=== PATIENT | male | born 1945 | race Caucasian/White ===

== ENCOUNTER 2021-10-30 07:13 | Outpatient (CLI) | payer MEDICARE, SELFPAY ==
--- NOTE | 2021-10-30 07:15 | CRLHL7_ITS ---
For Patients: As a result of the Cures Act, medical imaging exams and procedure reports are released immediately into your electronic medical record. You may view this report before your referring provider. If you have questions, please contact your health care provider. INDICATION: recent fall, persistent bruising lateral calf COMPARISON: None. TECHNIQUE: A compression venous ultrasound exam was performed of the left lower extremity using jorgensen-scale imaging, color Doppler and spectral Doppler analysis. FINDINGS: Sonographic imaging of the left lower extremity demonstrates normal compressibility and color Doppler venous blood flow within the common femoral vein, deep femoral vein, and the proximal greater saphenous vein. Within the thigh, the femoral vein is patent and compressible. At a lower level, the popliteal and posterior tibial veins also show normal compressibility and color Doppler venous blood flow. Limited imaging of the contralateral groin demonstrates a normal spectral waveform and color Doppler venous blood flow within the right common femoral vein. Within the left lateral calf subcutaneous tissues, there is a complex fluid collection measuring 8.7 x 0.9 x 4.6 cm containing numerous internal septations. IMPRESSION: No evidence of deep vein thrombosis within the left lower extremity. Left lateral calf subcutaneous hematoma measuring 8.7 x 0.9 x 4.6 cm. Dictated by Calvin Sharma MD @ 10/30/2021 8:21:38 AM (Electronically Signed)
== END 2021-10-30 07:14 | disposition home or self-care (01) ==
LOC: US 07:15
PROVIDERS: PCP Family Medicine; Visit Provider Physician Assistant Medical
DX: M79.605 Pain in left leg (principal)
CPT/HCPCS: 93971

== ENCOUNTER 2022-03-03 09:07 | Outpatient (CLI) | payer MEDICARE, SELFPAY ==
[2022-03-03 14:37] LABS: Chloride* 106 mmol/L (96-114); Potassium* 4.1 mmol/L (3.6-5.1)
[2022-03-03 14:39] LABS: Alanine Aminotransferase* 21 U/L (4-50); Alkaline Phosphatase* 94 U/L (40-150); Aspartate Amino Transferase* 35 U/L (12-35); Bilirubin Total* 0.8 mg/dL (0.1-1.5); Blood Urea Nitrogen* 24 mg/dL (7-30); Carbon Dioxide* 30 mmol/L (20-32); Cholesterol* 154 mg/dL (90-199); Creatinine* 0.8 mg/dL (0.5-1.5); Estimated Glomerular Filt Rate 92 ml/min; Glucose* 96 mg/dL (60-115); Total Protein* 6.7 g/dL (6.0-8.3)
[2022-03-03 14:40] LABS: HDL Cholesterol* 54 mg/dL (>=40); LDL Cholesterol Calculated 75 mg/dL (<100); Triglycerides* 126 mg/dL (40-149)
[2022-03-03 14:51] LABS: Sodium* 142 mmol/L (135-149)
[2022-03-04 21:07] LABS: Prostate Specific Antigen Free 0.2 ng/mL; Prostate Specific Antigen%Free 25 %; Prostate Specific AntigenTotal 0.8 ng/mL (0.0-4.0)
== END 2022-03-03 09:08 | disposition home or self-care (01) ==
PROVIDERS: PCP Family Medicine; Visit Provider Family Medicine
DX: Z00.00 Encounter for general adult medical examination without abnormal findings (principal); C61 Malignant neoplasm of prostate; E78.00 Pure hypercholesterolemia, unspecified; E78.5 Hyperlipidemia, unspecified
CPT/HCPCS: 80053; 80061; 84153; 84154

== ENCOUNTER 2022-04-05 23:48 | Outpatient (REF) | payer MEDICARE, SELFPAY ==
[2022-04-06 01:20] LABS: Basophils Absolute Auto 0.03 K/uL (0.00-0.30); Basophils Percent Auto 0.4 % (0.0-3.0); Eosinophils Absolute Auto 0.17 K/uL (0.00-0.50); Eosinophils Percent Auto 2.1 % (0.0-7.0); Hematocrit 45.3 % (37.0-53.0); Immature Granulocytes Abs Auto 0.01 K/uL (0.00-0.30); Immature Granulocytes Pct Auto 0.1 %; Mean Corpuscular HGB Conc 33 gm/dL (32-36); Mean Corpuscular Hemoglobin 31 pg (26-34); Mean Corpuscular Volume 93 fL (80-100); Monocytes Percent Auto 8.2 % (0.0-11.0); Neutrophils Percent Auto 77.2 % (42.0-72.0); Platelet Count* 224 K/uL (140-440); RDW Coefficient of Variation % 12.2 % (11.5-15.5); Red Blood Count 4.89 m/uL (4.30-5.90); White Blood Count* 8.07 K/uL (4.50-11.00)
[2022-04-06 01:25] LABS: Slide Review Reflex No
[2022-04-06 01:28] LABS: Albumin* 3.8 g/dL (3.3-5.0); Chloride* 106 mmol/L (96-114)
[2022-04-06 01:29] LABS: Potassium* 4.2 mmol/L (3.6-5.1); Sodium* 141 mmol/L (135-149)
[2022-04-06 01:31] LABS: Alkaline Phosphatase* 74 U/L (40-150); Aspartate Amino Transferase* 36 U/L (12-35); Bilirubin Total* 0.5 mg/dL (0.1-1.5); Blood Urea Nitrogen* 24 mg/dL (7-30); Carbon Dioxide* 30 mmol/L (20-32); Creatinine* 0.8 mg/dL (0.5-1.5); Estimated Glomerular Filt Rate 92 ml/min; Total Protein* 6.6 g/dL (6.0-8.3)
[2022-04-06 01:32] LABS: Alanine Aminotransferase* 25 U/L (4-50); Calcium* 8.8 mg/dL (8.4-10.6); Glucose* 100 mg/dL (60-115)
[2022-04-06 01:46] LABS: Vitamin D 25 Hydroxy* 84 ng/mL (30-80)
== END 2022-04-05 23:49 | disposition home or self-care (01) ==
LOC: LAB 23:48
PROVIDERS: PCP Family Medicine; Visit Provider Psychiatry & Neurology Neurology
DX: E55.9 Vitamin D deficiency, unspecified (principal); R29.6 Repeated falls; G35 Multiple sclerosis; G83.10 Monoplegia of lower limb affecting unspecified side; M79.604 Pain in right leg
CPT/HCPCS: 36415; 80053; 82306; 85025

== ENCOUNTER 2022-05-12 11:15 | Outpatient (RCR) | payer MEDICARE, SELFPAY ==
--- NOTE | 2022-01-11 14:21 | PT.OPE ---
PT [facility] Eval PT [facility] Outpatient Eval Start: 01/11/22 12:40 Freq: Status: Active Protocol: Document 01/11/22 14:19 CJT (Rec: 01/11/22 14:21 CJT [id number]) E-signed By Aaron Rdz PT Physical Therapy Outpatient Evaluation Insurance Information Recert Due Date 03/08/22 Insurance Name Medicare B Insurance Information/Comments AARP Medicare Complete Medical Diagnosis G35 - multiple sclerosis M79.605 - pain in L leg R29.898 - other symptoms and signs involving the musculoskeletal system Treating Diagnosis M79.605 - pain in L leg Referring Domo Levy MD Subjective Subjective Pt presents with complaints of L leg weakness and balance deficits. Pt would like to be able to golf again. Pt fell last summer while golfing - thinks this was about the 8th hole or so. Pt loves golfing ad walking and wants to be able to keep doing these activities. Has been using a cane for a few years now. Uses a 4WW when he is on uneven ground at home. Both sides of yard at home have fairly steep sloes and he needs his walker to walk through these areas or to do yardwork. No major injuries from falls but pt has fallen several times in the past year. Pt estimates he has 1-2 falls/month and 1-2 near- falls daily Pain Comments No pain Date of Last Physician Visit 12/25/21 Current Work Status Retired Precautions Therapy Limitations/Systems Review Not Limited Objective Range of Motion R Hip ROM Flexion - 120 Extension - 0 L Hip ROM Flexion - 100 Extension - -5 R knee ROM - WNL L knee ROM - WNL R ankle PF/DF - 50/0 L ankle PF/DF - 40/0 Strength R Hip Strength Flexion - 4 Abduction - 4 Adduction - 5 IR - 5 ER - 5 Extension - DNT L Hip Strength Flexion - 3+/5 Abduction - 3+ Adduction - 4 IR - 4 ER - 4 Extension - DNT R knee Extension - 5/5 R Knee Flexion - 4/5 L knee Extension - 4/5 L knee Flexion - 4/5 R ankle DF - 5/5 L ankle DF - 3+/5 Balance & Gait 4-Stage Balance test: unable to complete stages III and IV Pt ambulates with use of SPC Assessment Assessment/Impression Pt is a 76 year old male who presents to OP PT clinic with complaints of L leg weakness and balance deficits. Pt is retired and enjoys golfing in the summer and notes that he fell once when hitting a drive last summer that resulted in a cut on his forehead. Pt reports he falls about 1-2 times per month as well as had 1-2 near-falls daily but is able to use his cane, countertops, furniture to help him keep his balance. Pt was diagnosed with MS when he was 43 years old and has had 2 relapses since. 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 Testing today reveals deficits with pts LE strength and ROM with L LE strength worse than R. Pts L toe catches the ground often in swing phase and pt ambulates with use of a tall SPC primarily, also uses a 4WW when walking outside his home over uneven surfaces. Pt would like to attend PT sessions to help him improve his strength and balance so that he may reduce his risk for falls and allow him to continue golfing independently . Skilled PT services are medically necessary to address deficits and return patient to highest level of function. Recommend physical therapy sessions 2/week for 8 weeks. Pt agrees with this plan. Printout of HEP was given for I completion and pt gives verbal understanding of each exercise. Primary Functional Limitations walking, swinging golf club, transfers Plan of Care Rehabilitation Potential Good Physical Therapy Goals STG - To be completed in 2-3 weeks: 1. Pt will report reduction in near-falls in his home from 1 -2 per day to 0-1 per day to reduce his risk of falls as well as to show increased awareness of his surroundings and reduced risk of potential fall situations. 2. 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 3. Pt will demo ability to perform 10 STS transfers in 30 seconds or less as indication of improved muscular strength and endurance. LTG - To be completed in 8 weeks: 1. Pt to be I with HEP so that he may I manage progression of symptoms. 2. Pt will demo improved LE strength of 4/5 MMT or above for all LE motions to provide greater support and stability in standing to reduce risk of falls. 3. Pt will demo ability to swing golf club without LOB so that he may return to driving range, golfing at golf course for pleasure during the summer months. 4. Pt will ambulate 500 ft over uneven surfaces with least-restrictive assistive device without LOB so that he may walk in his yard and walk his local golf course with increased confidence and reduced risk of falls. Treatment Plan/Direct Interventions Gait Training,Joint Mobilization,Manual Therapy, Neuromuscular Re-ed,Self-Care/ Home Management,Therapeutic Activities,Therapeutic Exercises Frequency/Duration 2/week for 8 weeks Patient Will Be Discharged From Therapy Completion of LTG(s),Skills Plateau,Independent w/HEP, Independently Progressing Evaluation Billing Untimed Code Treatment Minutes 30 PT Eval No Charge No Complexity Low Certification Information Initial Certification Date 01/11/22 Ending Certification Date 03/08/22 Provider Signature Shows Agreement With POC & Medical Necessity Physician Signature & Date Requested Please Sign/Date Here Physician Comment/Change : Physician NPI Number #
--- NOTE | 2022-02-22 12:28 | PT.OPDN ---
PT [facility] Daily Note PT [facility] Out[facility] Daily Note Start: 01/11/22 12:40 Freq: Status: Active Protocol: Document 02/22/22 11:40 CJT (Rec: 02/22/22 12:27 CJT [id number]) E-signed By Aaron Rdz, PT PT [facility] Daily Progress Note Visit Information Note Type Recert/Progress Note Visit Number 10 Insurance Authorized Visits tbd Physician Authorized Visits eval and treat Insurance Information Recert Due Date 03/08/22 Insurance Name Medicare B Insurance Information/Comments AARP Medicare Complete Medical Diagnosis G35 - multiple sclerosis M79.605 - pain in L leg R29.898 - other symptoms and signs involving the musculoskeletal system Treating Diagnosis M62.81 - generalized muscle weakness Z91.81 - history of falls M21.37 - foot drop Referring Domo Levy MD Subjective Subjective Pt doing well. Used a FWW at his nephews house this weekend for walking to and from house [place] Otherwise doing well. Pain Comments No pain Home Exercise Home Exercise Comments YAS Objective Other/Pertinent Objective R Hip ROM Flexion - 120 Extension - 0 L Hip ROM Flexion - 110 Extension - 0 R knee ROM - WNL L knee ROM - WNL R ankle PF/DF - 50/0 L ankle PF/DF - 40/0 R Hip Strength Flexion - 4+ Abduction - 4 Adduction - 5 IR - 5 ER - 5 L Hip Strength Flexion - 2+/5 Abduction - 3+ Adduction - 4 IR - 4 ER - 4 R knee Extension - 5/5 R Knee Flexion - 4+/5 L knee Extension - 4+/5 L knee Flexion - 3+/5 R ankle DF - 5/5 L ankle DF - 3/5 4-Stage Balance test: pt able to complete all 4 stages today 5 times sit to stand test: 18 seconds Patient Instructed in Risks/Benefits Yes Therapeutic Exercise Therapeutic Exercise Minutes (minutes) 18 Therapeutic Exercise: To Restore Bike x 5 minutes Functional Status Supine HS stretch x 60 ea Supine piriformis stretch x 60 ea Rena stretch x 60 ea Sit to stand 4 x 5 Neuromuscular Re-Ed Neuromuscular Reeducation Minutes ( 12 minutes) Neuromuscular Reeducation Comments Toe taps on cones with hands at wall 2 x 5 ea Cone step-overs 2 x 10 ea Treatment Minutes Timed Code Treatment Minutes 30 Total Treatment Time 30 Billing Units Neuromuscular Reeducation Units 1 Therapeutic Exercise Units 1 Assessment/Impression Assessment/Impression Enrique demonstrates improvements in his static balance today with ability to complete all stages of 4-stage balance test. 5-time STS test completed in 18 seconds today which is fair and pt does note that he is having an easier time standing up from sitting position at home. Pt has fallen twice at home in the past two weeks although one sounds as if it was controlled well by Enrique when he fell outside on his porch and was hanging on to the railing. No injuries sustained during either fall. Gema balance has fluctuated considerably with his changes in medications so this is a concern although this seems to have leveled out over the past few visits to therapy. Gema strength in his L LE seems to be more limited now that it was during his initial evaluation and it is difficult to say how much progress we can expect to make on this due to his MS. Pt does note that he is supposed to set up an EMG study for his L LE but he needs to call to make an appointment. I think when Enrique gets his AFO on his L foot/ankle this will be a tremendous help for him as his toe drag continues to limit his ability to balance and ambulate. Recommend continued PT services to address deficits and return pt to highest level of function. Plan of Care Physical Therapy Goals STG - To be completed in 2-3 weeks: 1. Pt will report reduction in near-falls in his home from 1 -2 per day to 0-1 per day to reduce his risk of falls as well as to show increased awareness of his surroundings and reduced risk of potential fall situations. MET - near falls continue to occur several times/week 2. 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 MET 3. Pt will demo ability to perform 10 STS transfers in 30 seconds or less as indication of improved muscular strength and endurance. NOT MET LTG - To be completed in 8 weeks: 1. Pt to be I with HEP so that he may I manage progression of symptoms. 2. Pt will demo improved LE strength of 4/5 MMT or above for all LE motions to provide greater support and stability in standing to reduce risk of falls. 3. Pt will demo ability to swing golf club without LOB so that he may return to driving range, golfing at golf course for pleasure during the summer months. 4. Pt will ambulate 500 ft over uneven surfaces with least-restrictive assistive device without LOB so that he may walk in his yard and walk his local golf course with increased confidence and reduced risk of falls. Daily Plan of Care Continue per POC Recertification Information Provider Signature Shows Agreement With POC & Medical Necessity
--- NOTE | 2022-03-25 13:02 | PT.OPDN ---
PT [facility] Daily Note PT [facility] Daily Note Start: 01/11/22 12:40 Freq: Status: Active Protocol: Document 03/25/22 09:47 CLIVEB (Rec: 03/25/22 12:54 JLB [id number]) E-signed By Vani Anderson PT OP Daily Progress Note Visit Information Note Type Recert/Progress Note Visit Number 18 Insurance Authorized Visits 999 Physician Authorized Visits eval and treat Insurance Information Recert Due Date 03/08/22 Insurance Name Medicare B Insurance Information/Comments AARP Medicare Complete Medical Diagnosis G35 - multiple sclerosis M79.605 - pain in L leg R29.898 - other symptoms and signs involving the musculoskeletal system Treating Diagnosis M62.81 - generalized muscle weakness Z91.81 - history of falls M21.37 - foot drop Referring Domo Levy MD Subjective Subjective Enrique reports doing well, no falls since last visit. He has been trying to stay off of all the ice we've had lately. Today is his last scheduled visit, but he would like to continue coming 1x/week. Discussed returning to 2x/week once his AFO comes in. Pain Comments No pain Home Exercise Home Exercise Comments [id number] Objective Other/Pertinent Objective 03/25/2022: 4-Stage Balance test: able to hold narrow, semi-tandem, and tandem (L foot in front) 10 sec; unable to hold single leg stance >3 seconds on either side (inability to hold single leg stance >5 seconds indicates increased risk of falls) 5 times sit to stand test: 15. 35 seconds (18 seconds on eval ) (average time for adults in their 70s is 12.6 seconds; greater than 15.0 seconds indicates risk of recurrent falls) TUG, with single point cane: 15.26 seconds (greater than 13 .5 seconds indicates increased risk of falls) Patient Instructed in Risks/Benefits Yes Therapeutic Exercise Therapeutic Exercise Minutes (minutes) 8 Therapeutic Exercise: To Restore Warm up on bike, 6 minutes. Functional Status Seat 12, 8.5 resistance. Sit to stand x5 Gait & Stair Training Gait Training/Stairs Minutes (minutes) 12 Gait & Stair Training Comments Pre-gait, to prepare for appropriate heel strike in walking: Unilateral heel taps x10B, alternating heel taps 2x5B (increased difficulty w L heel tap today) PT provided CGA-Allison to recover balance during gait, patient using cane. Verbal cues for heel strike, especially on L. Patient demonstrating scissoring pattern; PT provided verbal and visual cues for maintaining space between feet , keeping each foot on its own train track. Patient able to reset gait pattern as needed after brief standing rest breaks. PT facilitated stair navigation practice w reciprocal step pattern, CGA, single rail. Verbal cues to avoid catching L toe on ascent . Patient demonstrates L hip hiking to clear toe on ascent. Neuromuscular Re-Ed Neuromuscular Reeducation Minutes ( 24 minutes) Neuromuscular Reeducation Comments Static balance: narrow base, semitandem, tandem, and single leg stance 1x10s each on solid surface. tandem stance 1x60s B on solid surface PNF in sidelying: PT facilitated L hip flexion and extension in gravity- neutral position. First set of 10 w/o resistance, 2nd set of 10 w resistance proximal to L knee on concentric phase, 3rd set of 10 w resistance proximal to L knee on both concentric and eccentric. Patient reported that this activity was challenging. Treatment Minutes Timed Code Treatment Minutes 44 Total Treatment Time 44 Billing Units Gait Training/Stairs Units 1 Neuromuscular Reeducation Units 2 Assessment/Impression Assessment/Impression Enrique returns to PT for balance follow-up. Re- evaluated fall risk today through administering the TUG, 4 Stage Balance Test, and 5x Sit to Stand. Although Enrique's performance on the 5x Sit to Stand improved, all outcome measures still indicate increased risk of falls. This is consistent with Enrique's self-report of recurrent falls at home. Enrique's primary gait abnormalities include reduced heel strike on left, weak left hip flexors, and narrow base of support; he also has impaired static and dynamic balance and frequently requires up to modA by the PT and/or contact with the wall to recover his balance during gait. Most challenging activities today include resisted L hip flexion and maintaining both heel strike and adequate space between feet simultaneously. Enrique tolerated today's treatment well. Enrique continues to note that he feels he is progressing with therapy. Enrique will benefit from continued PT to build strength , mobility, and balance, and to support him in safely participating in his preferred activities. At this time, PT recommends 1 visit per week until Enrique has his AFO, at which point PT would increase to 2x/week to facilitate practicing normal gait with the assistance of the AFO. Co-Signed by Aaron Rdz, [place] DPT [id number] Plan of Care Physical Therapy Goals STG - To be completed in 2-3 weeks: 1. Pt will report reduction in near-falls in his home from 1 -2 per day to 0-1 per day to reduce his risk of falls as well as to show increased awareness of his surroundings and reduced risk of potential fall situations. MET - near falls continue to occur several times/week 2. 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 MET 3. Pt will demo ability to perform 10 STS transfers in 30 seconds or less as indication of improved muscular strength and endurance. NOT MET LTG - To be completed in 8 weeks: 1. Pt to be I with HEP so that he may I manage progression of symptoms. 2. Pt will demo improved LE strength of 4/5 MMT or above for all LE motions to provide greater support and stability in standing to reduce risk of falls. 3. Pt will demo ability to swing golf club without LOB so that he may return to driving range, golfing at golf course for pleasure during the summer months. 4. Pt will ambulate 500 ft over uneven surfaces with least-restrictive assistive device without LOB so that he may walk in his yard and walk his local golf course with increased confidence and reduced risk of falls. Daily Plan of Care Change POC; See Comments Daily Plan of Care Comments Continuing PT services for additional 6 weeks, 1-2 visits /week. Student Supervision Licensed PT Directed/Approved Treatment, Reviewed POC with Patient,Made Contact with Patient, Participated in Treatment Documentation Reviewed By Engineering Consultant Yes Recertification Information Initial Certification Date 01/11/22 Recertification Start Date 03/25/22 Recertification Due Date 05/07/22 Reasons to Continue Skilled Therapy Balance, functional strength, gait training to reduce risk of falls at home and in community. Rehabilitation Potential Good Continued Plan of Care and Interventions Balance, functional strength, gait training to reduce risk of falls at home and in community. Provider Signature Shows Agreement With POC & Medical Necessity Physician Comment/Change Comment or Changes Physician NPI Number #
== END 2022-05-21 10:20 | disposition home or self-care (01) ==
PROVIDERS: PCP Family Medicine; Visit Provider Family Medicine
DX: M79.605 Pain in left leg (principal); Z51.89 Encounter for other specified aftercare
CPT/HCPCS: 97110; 97112; 97116; 97161; 97530

== ENCOUNTER 2023-02-14 08:02 | Outpatient (CLI) | payer MEDICARE, SELFPAY | END 2023-02-14 08:03 | disposition home or self-care (01) | LOC: NFLDREF 02-16 07:16 | PROVIDERS: PCP Family Medicine; Referring Provider Family Medicine; Visit Provider Family Medicine | DX: Z00.00 Encounter for general adult medical examination without abnormal findings (principal); C61 Malignant neoplasm of prostate; E78.00 Pure hypercholesterolemia, unspecified; G35 Multiple sclerosis; G50.0 Trigeminal neuralgia; Z79.899 Other long term (current) drug therapy; E78.5 Hyperlipidemia, unspecified; N52.9 Male erectile dysfunction, unspecified | CPT/HCPCS: 80053; 80061; 80156; 84153 ==

== ENCOUNTER 2023-03-02 08:45 | Outpatient (RCR) | payer MEDICARE, SELFPAY ==
--- NOTE | 2022-11-24 12:41 | PT.OPE ---
PT [facility] Eval PT [facility] Out[facility] Eval Start: 11/24/22 11:41 Freq: Status: Active Protocol: Document 11/24/22 11:41 SOLANGE (Rec: 11/24/22 11:43 SOLANGE [id number]) E-signed By Bill Kamara DPT, MS Physical Therapy Outpatient Evaluation Insurance Information Recert Due Date 02/22/23 Insurance Name Medicare B,[employer] [facility] Medical Diagnosis Pain in right knee Treating Diagnosis R knee pain, impaired L LE NM activation, imbalance, gait dysfunction, deconditioning, and B (L>R) LE weakness Subjective Subjective Pt presents to PT with c/o of R knee pain of insidious origin ~1 month ago. He also describes 10 year hx of L leg weakness and balance deficits due to MS that primarily affects his L LE. Dx with MS at age of 43 with 2 relapses since. PT was very helpful earlier this year being able to amb with a SPC for short distances and a 4WW for longer distances and on uneven surfaces. Uses a SPC that is higher than recommended since he feels more stable. Returned to golfing and riding his 3 wheeled bike but has not exercises over the past 6-8 weeks with his [id number] being hospitalized and passing away last week. Golfed on but had a very difficult time falling once while squatting to place his golf edouard and ball. Falls 1-2x per month typically while squatting or turning quickly due to L foot drop catching his toes on the carpet. No major injuries with falls but is fearful of injuries. Pt motivated to return to walking for exercise and to reduce his falls risk. AGGR factors: walking, golfing, in<>out of chairs and cars, supine<>sit, uneven surfaces, squatting. ALLEV factors: rest, movement/ exercise. Pt finished paperwork 18 min into today?s session. Pain Comments 0-3/10 Current Work Status Retired Precautions Therapy Limitations/Systems Review Not Limited Objective Functional Test Performed & Score LEFS: 34 Assessment Assessment/Impression Objectively pt displays significant L LE weakness and impaired NM activation, imbalance, gait dysfunction, deconditioning, and B (L>R) LE weakness. 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 Testing today reveals deficits with significant deficits in B (L>R ) L LE strength and ROM. Pt?s L toe catches the ground often in swing phase and pt ambulates with use of a tall SPC primarily stating that he feels more stable with it like this, also uses a 4WW when walking outside his home over uneven surfaces. Pt would like to attend PT sessions to help him improve his strength and balance so that he may reduce his risk for falls and allow him to continue golfing independently. Skilled PT services are medically necessary to address deficits and return patient to highest level of function. Pt agrees with this plan. Printout of HEP was given for I completion and pt gives verbal understanding of each exercise . Primary Functional Limitations Walking, golfing, in<>out of chairs and cars, supine<>sit, uneven surfaces, squatting Plan of Care Rehabilitation Potential Excellent Physical Therapy Goals STG - To be completed in 4 weeks: 1. Pt will report reduction in near-falls in his home from 1 -2 per day to 0-1 per day to reduce his risk of falls as well as to show increased awareness of his surroundings and reduced risk of potential fall situations. 2. Pt will demo ability to maint mechanic tandem stance for 30 seconds without use of hands for support to show improved static balance. 3. Pt will demo ability to perform 10 STS transfers in 30 seconds or less as indication of improved muscular strength and endurance. LTG - To be completed in 10 weeks: 1. Pt to be I with HEP so that he may I manage progression of symptoms. 2. Pt will demo improved LE strength of 4/5 MMT or above for all LE motions to provide greater support and stability in standing to reduce risk of falls. 3. Pt will demo ability to swing golf club without LOB so that he may return to driving range, golfing at golf course for pleasure during the summer months. 4. Pt will ambulate 500 ft over uneven surfaces with least-restrictive assistive device without LOB so that he may walk in his yard and walk his local golf course with increased confidence and reduced risk of falls. Coordination/Communication With Referral Source Treatment Plan/Direct Interventions Neuromuscular Re-ed, Therapeutic Exercises Frequency/Duration 1x per week for at least 6-10 visits, decreasing visit frequency as able. Patient Will Be Discharged From Therapy Completion of LTG(s),Skills Plateau,Independent w/HEP, Independently Progressing Evaluation Billing Untimed Code Treatment Minutes 18 Complexity Moderate Certification Information Initial Certification Date 11/24/22 Ending Certification Date 02/22/23 Provider Signature Shows Agreement With POC & Medical Necessity Physician Signature & Date Requested Please Sign/Date Here Physician Comment/Change : Physician NPI Number #
--- NOTE | 2023-02-23 09:56 | PT.OPDN ---
PT [place] Out[facility] Daily Note PT [facility] Daily Note Start: 11/24/22 11:41 Freq: Status: Active Protocol: Document 02/23/23 09:42 SOLANGE (Rec: 02/23/23 09:55 SOLANGE [email or web address]) E-signed By Bill Kamara DPT, MS PT OP Daily Progress Note Visit Information Note Type Recert/Progress Note Visit Number 12 Insurance Authorized Visits 99 Physician Authorized Visits Eval and treat Insurance Information Recert Due Date 02/22/23 Insurance Name Medicare B,[facility] Medical Diagnosis Pain in right knee Treating Diagnosis R knee pain, impaired L LE NM activation, imbalance, gait dysfunction, deconditioning, and B (L>R) LE weakness Subjective Subjective Pt reports he continues to struggle with increased B (L>R ) LE weakness, decreased endurance and balance issues, especially while squatting 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 His R knee pain continues to improve. No falls since his last session, but he is very discouraged since it feels like his legs are getting progressively weaker. His L LE remains very weak fatiguing quickly with walking requiring him to be very careful to sheepskin pickler his L LE. Has been more consistent with his HEP but his L LE continues to get weaker. Pain Comments 0-03/23 R knee pain Precautions Treatment Precautions/Contraindications L foot drop and MS PMH Objective Other/Pertinent Objective Range of Motion R Hip ROM Flexion - 120 Extension - 3 L Hip ROM Flexion - 108 Extension - 1 R knee ROM - WNL L knee ROM - WNL R ankle PF/DF - 50/12 L ankle PF/DF - 45/5 Strength R Hip Strength Flexion 4/5 Abduction 4/5 Adduction 4+/5 IR - 5 ER - 5 L Hip Strength Flexion 3+/5 Abduction 4- Adduction 4 IR 4 ER 4 Extension - DNT R knee Extension 5/5 R Knee Flexion 4+/5 L knee Extension 4/5 L knee Flexion 4/5 R ankle DF 5/5 L ankle DF 3+/5 Balance & Gait: SLS: R 6 sec mod sway, L 3 sec excessive sway Gait: with FWW and no AFO antalgic pattern with L foot drop, decreased L hip flex during swing phase, decreased L toe off, improved velocity and increased B stride width Functional Test Performed & Score LEFS: 34 Patient Instructed in Risks/Benefits Yes Therapeutic Exercise Therapeutic Exercise Minutes (minutes) 45 Therapeutic Exercise: To Restore NuStep - 13 minutes, level 5 Functional Status with fatigue following Leg Press, 50# 10 x 4 slower motion TRX Squats 3 x 10 with fatigue [place] with alt toe taps on box 3 x 8 SBA Seated LAQs and marching 10 x 3 each with fatigue and decreased L knee and hip ROM consistently again today. Standing hip ABD and ext at counter with 2 UE support 10 x 3 B with fatigue Standing marching at counter 8 x 3 slower motion light touch Standing heel raises 14 x 3 decreased UE support Partial tandem balance at counter with improved balance today with fatigue Walking may with SPC next to wall 30' x 4, 2 sets. Emphasized importance. Treatment Minutes Timed Code Treatment Minutes 45 Total Treatment Time 45 Billing Units Therapeutic Exercise Units 3 Assessment/Impression Assessment/Impression Pt continues to struggle greatly with gait and WBing daily activities due to impaired L LE NM control and weakness due to MS with increased imbalance again today. Reviewed importance of increased activity levels and recommended pt join a gym for recumbent bike/NuStep use along with weight machines with the colder weather. Pt again arrived without AFO again today and the importance of regular usage combined with a 4WW use emphasized due to chronic L foot drop, imbalance and significant L LE weakness. Able to consistently progress dynamic and static balance, and LE strengthening exercises on days without MS flare ups but he continues to fatigue quickly with all exercises and progressions requiring a rest break following each exercise . Pt will benefit from continued skilled PT services to progress B LE strength, endurance, balance and quality of gait, but functional gains will likely be limited due to the progression of his MS. Plan of Care Physical Therapy Goals STG - To be completed in 4 weeks: 1. Pt will report reduction in near-falls in his home from 1 -2 per day to 0-1 per day to reduce his risk of falls as well as to show increased awareness of his surroundings and reduced risk of potential fall situations. Progressing 2. 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 Progressing 3. Pt will demo ability to perform 10 STS transfers in 30 seconds or less as indication of improved muscular strength and endurance. Progressing LTG - To be completed in 28 weeks: 1. Pt to be I with HEP so that he may I manage progression of symptoms. Progressing 2. Pt will demo improved LE strength of 4/5 MMT or above for all LE motions to provide greater support and stability in standing to reduce risk of falls. Progressing 3. Pt will demo ability to swing golf club without LOB so that he may return to driving range, golfing at golf course for pleasure during the summer months. Progressing 4. Pt will ambulate 500 ft over uneven surfaces with least-restrictive assistive device without LOB so that he may walk in his yard and walk his local golf course with increased confidence and reduced risk of falls. Progressing Daily Plan of Care Continue per POC Daily Plan of Care Comments Progress balance, gait and B LE strength, as able. Recertification Information Initial Certification Date 11/24/22 Recertification Start Date 02/22/23 Recertification Due Date 05/23/23 Reasons to Continue Skilled Therapy See assessment Rehabilitation Potential Good due to chronic nature of sxs, progressive nature of MS, and significant B LE weakness and deconditioning. Continued Plan of Care and Interventions Continue 1x per week for 6-10 additional visits, transitioning to I sx management with his HEP and gym attendance, as able. Continued TE and NM activities . Provider Signature Shows Agreement With POC & Medical Necessity Physician Comment/Change Comment or Changes Physician NPI Number #
== END 2023-06-30 23:59 | disposition home or self-care (01) ==
PROVIDERS: PCP Family Medicine; Visit Provider Family Medicine
DX: M25.561 Pain in right knee (principal); R26.81 Unsteadiness on feet; R26.9 Unspecified abnormalities of gait and mobility; R53.1 Weakness; R29.898 Other symptoms and signs involving the musculoskeletal system; Z51.89 Encounter for other specified aftercare
CPT/HCPCS: 97110; 97162

== ENCOUNTER 2023-03-04 10:08 | Outpatient (CLI) | payer MEDICARE, SELFPAY ==
--- NOTE | 2023-03-04 11:20 | W.ANESCHARGE ---
Anesthesia Charges Start Date/Time Anesthesia Start Date: 03/04/23 Anesthesia Start Time: 10:59 Stop Date/Time Anesthesia Stop Date: 03/04/23 Anesthesia Stop Time: 11:23
--- NOTE | 2023-03-04 12:12 | W.ANESCHARGE ---
Anesthesia Charges Start Date/Time Anesthesia Start Date: 03/04/23 Anesthesia Start Time: 10:59 Stop Date/Time Anesthesia Stop Date: 03/04/23 Anesthesia Stop Time: 11:23 Summary Extremes of Age - Over 70 or under 1: MDA
== END 2023-03-04 10:09 | disposition home or self-care (01) ==
LOC: OP CLINIC 10:09
PROVIDERS: PCP Family Medicine; Visit Provider Internal Medicine
DX: Z86.010 Personal history of colon polyps (principal)
CPT/HCPCS: 00811; 00812; 45378; 99100; J2704

== ENCOUNTER 2024-03-26 07:58 | Outpatient (CLI) | payer MEDICARE, SELFPAY | END 2024-03-26 07:59 | disposition home or self-care (01) | LOC: NFLDREF 04-02 04:38 | PROVIDERS: PCP Family Medicine; Referring Provider Family Medicine; Visit Provider Family Medicine | DX: E78.5 Hyperlipidemia, unspecified (principal); Z12.5 Encounter for screening for malignant neoplasm of prostate | CPT/HCPCS: 80053; 80061; G0103 ==

== ENCOUNTER 2024-08-03 17:00 | Outpatient (CLI) | payer MEDICARE, SELFPAY | END 2024-08-03 17:01 | disposition home or self-care (01) | LOC: NFLDREF 08-09 14:46 | PROVIDERS: PCP Family Medicine; Referring Provider Family Medicine; Visit Provider Nurse Practitioner Family | DX: R19.7 Diarrhea, unspecified (principal) | CPT/HCPCS: 87493; 87505; 87507 ==

== ENCOUNTER 2024-08-23 09:28 | Outpatient (CLI) | payer MEDICARE, SELFPAY ==
[2024-08-23 10:21] LABS: Lab Add On Test New Spec Needed
== END 2024-08-23 09:29 | disposition home or self-care (01) ==
PROVIDERS: PCP Family Medicine; Visit Provider Family Medicine
DX: R19.7 Diarrhea, unspecified (principal)
CPT/HCPCS: 80053; 86258